=== PATIENT | female | born 1960 | race Caucasian/White ===

== ENCOUNTER → 2017-02-09 | Outpatient (CLI) | payer OTHER ==
[2017-02-09 12:05] LABS: BUN 13 mg/dL (7-18); GFR (ESTIMATED) 65 ML/MIN (59-)
[2017-02-09 12:10] LABS: HEMOGLOBIN 13.7 g/dL (12.2-16.2); LYMPH # 3.7 K/mm3 (0.7-4.5); LYMPH % 41.4 % (10-50.0)
== END ==
LOC: LAB 11:45
PROVIDERS: Internal Medicine
DX: K29.70 Gastritis, unspecified, without bleeding (principal); R11.2 Nausea with vomiting, unspecified